=== PATIENT | female | born 1990 | race Caucasian/White ===

== ENCOUNTER 2022-07-11 05:24 | Inpatient (IN) | payer BC ==
[2022-07-11] MEDS ORDERED: Oxytocin 10 Units/1 ML SDV ONE (05:50)
[2022-07-11] MEDS ORDERED: Methylergonovine 0.2 MG/1 ML Amp IM ONE (06:30)
[2022-07-11] MEDS ORDERED: Oxytocin 10 Units/1 ML SDV IM ONE (11:19)
[2022-07-11] MEDS: Ibuprofen 600 MG Tab PO PRN ×2 (13:09→19:38)
[2022-07-12] MEDS: Ibuprofen 600 MG Tab PO PRN (08:27)
[2022-07-12] MEDS ORDERED: Prenatal Multivitamin with Calcium/Folic Acid/Fe Fumarate Cap PO SCH (09:00)
[2022-07-12 09:56] VITALS: BP 111/69; PULSE 81
== END 2022-07-12 09:45 | disposition home or self-care (01) | DRG 560 ==
LOC: FB.ED 05:24 → FB.MS 11:06
PROVIDERS: ADMIT Emergency Medicine; ATTEND Family Medicine
PROC: 10E0XZZ Delivery of Products of Conception, External Approach (ICD-10-PCS; principal; 2022-07-11)
DX: O62.3 Precipitate labor (principal); Z3A.40 40 weeks gestation of pregnancy; Z37.0 Single live birth
CPT/HCPCS: 36415; 82947; 85025; 96372; 99285; A9270-GY; J2210; J2590